=== PATIENT | male | born 1945 | race Caucasian/White ===

== ENCOUNTER 2020-04-23 10:47 | Emergency (ER) | payer MEDICARE ==
[~2020-04-23] VITALS: Ht 162.6 cm; Wt 95.3 kg
[~2020-04-23 10:47] MED LIST: APAP650 PO; FLOMAX; FLOMAX0.4 MG PO; FLONASE 0.05%50 MCG NASAL; HYDRALAZINE 2525 MG PO; HYDROCODON-ACE1 EAC7 PO; HYDROCODON-ACE1 EAC8 PO; LISINOPRIL20 MG PO; MOBIC15 MG PO; MULTIVITAMINS1 EAC7 PO; NORCO 5-325 TA1 EACH PO; NORVASC5 MG PO; PERCOCET 5-3251 EACH PO; PROTONIX40 M1 PO; TAMSULOSIN HCL0.4 M1 PO
[2020-04-23] MEDS ORDERED: CIPROFLOXACIN500 M1 PO (13:35)
[2020-04-23 13:56] LABS: URINE BILIRUBIN NEGATIVE (Negative); URINE BLOOD 3+ (Negative); URINE CLARITY CLOUDY; URINE COLOR YELLOW; URINE GLUCOSE-RANDOM NEGATIVE (Negative); URINE KETONES NEGATIVE (Negative); URINE LEUKOCYTES-REFLEX TRACE (Negative); URINE NITRITE-REFLEX NEGATIVE (Negative); URINE PROTEIN NEGATIVE (Negative); URINE UROBILINOGEN 0.2 E.U./dl (0.2-1.0)
[2020-04-23 13:58] VITALS: BP 182/86
[2020-04-23 14:16] LABS: BACTERIA-REFLEX None Seen /HPF (None Seen); CASTS None Seen /LPF (None Seen); CRYSTALS None Seen /LPF (None Seen); MUCUS 0-3 Light strn/LPF (None Seen); SQUAMOUS 0-3 Few /LPF (0-3); URINE RBC 3-10 Few /HPF (0-2); URINE WBC-REFLEX None Seen /HPF (0-5)
== END 2020-04-23 13:59 | disposition home or self-care (01) ==
LOC: M.ERS 10:47
PROVIDERS: Family Medicine
DX: R33.9 Retention of urine, unspecified (principal); N40.0 Benign prostatic hyperplasia without lower urinary tract symptoms

== ENCOUNTER 2020-04-29 07:41 | Emergency (ER) | payer MEDICARE ==
[~2020-04-29] VITALS: Ht 162.6 cm; Wt 95.3 kg
[~2020-04-29 07:41] MED LIST changes: +CIPROFLOXACIN500 M1 PO
[2020-04-29 08:15] LABS: URINE BILIRUBIN NEGATIVE (Negative); URINE BLOOD 3+ (Negative); URINE CLARITY CLEAR; URINE COLOR YELLOW; URINE GLUCOSE-RANDOM NEGATIVE (Negative); URINE KETONES NEGATIVE (Negative); URINE LEUKOCYTES-REFLEX NEGATIVE (Negative); URINE NITRITE-REFLEX NEGATIVE (Negative); URINE PROTEIN NEGATIVE (Negative); URINE SPECIFIC GRAVITY 1.025 (1.005-1.030); URINE UROBILINOGEN 0.2 E.U./dl (0.2-1.0)
[2020-04-29 08:20] LABS: SQUAMOUS NONE SEEN /LPF (0-3); URINE RBC >20 Many /HPF (0-2); URINE WBC-REFLEX 0-5 Rare /HPF (0-5)
[2020-04-29 08:21] LABS: BACTERIA-REFLEX None Seen /HPF (None Seen); CASTS None Seen /LPF (None Seen); CRYSTALS None Seen /LPF (None Seen); MUCUS >6 Heavy strn/LPF (None Seen)
[2020-04-29 08:27] LABS: CALCIUM 7.8 mg/dL (8.5-10.1); CREATININE 0.9 mg/dL (0.6-1.3); POTASSIUM 3.6 mmol/L (3.5-5.1)
[2020-04-29 08:41] VITALS: BP 119/68
== END 2020-04-29 09:09 | disposition home or self-care (01) ==
LOC: M.ERS 07:41
PROVIDERS: Emergency Medicine Emergency Medical Services
DX: R33.9 Retention of urine, unspecified (principal); Z98.890 Other specified postprocedural states; Z79.2 Long term (current) use of antibiotics; Z79.899 Other long term (current) drug therapy

== ENCOUNTER 2020-05-19 01:33 | Emergency (ER) | payer MEDICARE ==
[~2020-05-19] VITALS: Ht 167.6 cm; Wt 81.7 kg
[2020-05-19 02:07] LABS: URINE BILIRUBIN NEGATIVE (Negative); URINE BLOOD 2+ (Negative); URINE CLARITY CLEAR; URINE COLOR YELLOW; URINE GLUCOSE-RANDOM NEGATIVE (Negative); URINE KETONES NEGATIVE (Negative); URINE LEUKOCYTES-REFLEX 1+ (Negative); URINE NITRITE-REFLEX NEGATIVE (Negative); URINE PROTEIN NEGATIVE (Negative); URINE UROBILINOGEN 0.2 E.U./dl (0.2-1.0)
[2020-05-19 02:12] LABS: SQUAMOUS 0-3 Few /LPF (0-3); URINE WBC-REFLEX 6-15 Few /HPF (0-5)
[2020-05-19 02:13] LABS: CASTS None Seen /LPF (None Seen); CRYSTALS None Seen /LPF (None Seen); MUCUS 0-3 Light strn/LPF (None Seen)
[2020-05-19] MEDS ORDERED: NEBULIZER MISCELL (02:33)
[2020-05-19] MEDS ORDERED: IPRAT-ALBUT 0.5-3 ML INH (02:33)
[2020-05-19 02:55] VITALS: BP 159/82
== END 2020-05-19 02:57 | disposition home or self-care (01) ==
LOC: M.ERS 01:33
PROVIDERS: Personal Emergency Response Attendant
DX: T82.898A Other specified complication of vascular prosthetic devices, implants and grafts, initial encounter (principal); N40.0 Benign prostatic hyperplasia without lower urinary tract symptoms; Y84.8 Other medical procedures as the cause of abnormal reaction of the patient, or of later complication, without mention of misadventure at the time of the procedure; Y92.89 Other specified places as the place of occurrence of the external cause

== ENCOUNTER 2020-05-22 12:34 | Emergency (ER) | payer MEDICARE ==
[~2020-05-22] VITALS: Ht 165.1 cm; Wt 81.7 kg
[~2020-05-22 12:34] MED LIST changes: +IPRAT-ALBUT 0.5-3 ML INH; +NEBULIZER MISCELL
[2020-05-22] MEDS ORDERED: BACTRIM DS TAB1 EACH PO (13:05)
[2020-05-22 13:45] LABS: ABSOLUTE BASOPHILS 0.1 thou/uL (0.0-0.2); ABSOLUTE EOSINOPHILS 0.1 thou/uL (0.0-0.7); ABSOLUTE LYMPHOCYTES 0.9 thou/uL (0.8-5.3); ABSOLUTE MONOCYTES 0.7 thou/uL (0.0-1.2); ABSOLUTE NEUTROPHILS 5.9 thou/uL (1.6-8.1); BASOPHILS 0.8 %; EOSINOPHILS 1.4 %; HEMOGLOBIN 15.7 gm/dL (14.0-18.0); MCH 30.5 pg (26.0-34.0); MCHC 33.5 g/dL (28.0-37.0); MCV 91.2 fL (80.0-100.0); MONOCYTES 8.8 %; NUCLEATED RBCS 0 /100WBC; PLATELET COUNT* 211 thou/uL (150-400); RBC 5.15 mil/uL (4.50-6.00); RDW-CV 12.9 % (10.5-14.5); WBC 7.7 thou/uL (4.0-11.0)
[2020-05-22 13:53] LABS: CALCIUM 8.1 mg/dL (8.5-10.1); CREATININE 0.8 mg/dL (0.6-1.3); POTASSIUM 3.9 mmol/L (3.5-5.1)
[2020-05-22 13:56] LABS: APTT 26.4 Seconds (25.0-31.3); PROTIME 10.7 Seconds (9.20-11.50)
[2020-05-22 14:02] LABS: ALBUMIN 3.3 g/dL (3.4-5.0); TOTAL BILIRUBIN 0.5 mg/dL (<0.1-1.0)
[2020-05-22] MEDS ORDERED: BACTRIM DS TAB1 EAC1 PO (14:28)
[2020-05-22 16:43] VITALS: BP 148/91
== END 2020-05-22 16:45 | disposition short-term general hospital (02) ==
LOC: M.ERS 12:34
PROVIDERS: Nurse Practitioner Family
DX: R31.0 Gross hematuria (principal); R33.9 Retention of urine, unspecified; L03.90 Cellulitis, unspecified

== ENCOUNTER 2020-07-16 06:39 | Emergency (ER) | payer MEDICARE ==
[~2020-07-16] VITALS: Ht 162.6 cm; Wt 96.2 kg
[~2020-07-16 06:39] MED LIST changes: +BACTRIM DS TAB1 EAC1 PO; +BACTRIM DS TAB1 EACH PO
[2020-07-16] MEDS ORDERED: PROSCAR 5MG TABL5 M1 PO (06:54)
[2020-07-16 07:46] LABS: CALCIUM 8.7 mg/dL (8.5-10.1); CREATININE 0.8 mg/dL (0.6-1.3); POTASSIUM 3.8 mmol/L (3.5-5.1)
[2020-07-16 08:08] LABS: URINE BILIRUBIN NEGATIVE (Negative); URINE BLOOD 3+ (Negative); URINE CLARITY SL CLOUDY; URINE COLOR YELLOW; URINE GLUCOSE-RANDOM NEGATIVE (Negative); URINE KETONES NEGATIVE (Negative); URINE LEUKOCYTES-REFLEX 1+ (Negative); URINE NITRITE-REFLEX NEGATIVE (Negative); URINE PROTEIN 1+ (Negative)
[2020-07-16] MEDS ORDERED: KEFLEX500 M1 PO (08:13)
[2020-07-16 08:20] LABS: BACTERIA-REFLEX >30 Many /HPF (None Seen); SQUAMOUS NONE SEEN /LPF (0-3); URINE RBC >20 Many /HPF (0-2); URINE WBC-REFLEX 6-15 Few /HPF (0-5)
[2020-07-16 08:22] LABS: CASTS None Seen /LPF (None Seen); CRYSTALS None Seen /LPF (None Seen); MUCUS 0-3 Light strn/LPF (None Seen)
[2020-07-16 08:26] VITALS: BP 144/90
== END 2020-07-16 08:27 | disposition home or self-care (01) ==
LOC: M.ERS 06:39
PROVIDERS: Emergency Medicine Emergency Medical Services
DX: T83.098A Other mechanical complication of other urinary catheter, initial encounter (principal); N39.0 Urinary tract infection, site not specified; N40.0 Benign prostatic hyperplasia without lower urinary tract symptoms; Y84.8 Other medical procedures as the cause of abnormal reaction of the patient, or of later complication, without mention of misadventure at the time of the procedure; Y92.89 Other specified places as the place of occurrence of the external cause

== ENCOUNTER 2020-08-10 01:29 | Emergency (ER) | payer MEDICARE ==
[~2020-08-10] VITALS: Ht 162.6 cm; Wt 96.2 kg
[~2020-08-10 01:29] MED LIST changes: +KEFLEX500 M1 PO; +PROSCAR 5MG TABL5 M1 PO
[2020-08-10 01:59] LABS: URINE BILIRUBIN NEGATIVE (Negative); URINE BLOOD 1+ (Negative); URINE COLOR YELLOW; URINE GLUCOSE-RANDOM NEGATIVE (Negative); URINE KETONES NEGATIVE (Negative); URINE NITRITE-REFLEX NEGATIVE (Negative); URINE PROTEIN NEGATIVE (Negative); URINE UROBILINOGEN 0.2 E.U./dl (0.2-1.0)
[2020-08-10 02:01] LABS: URINE CLARITY SL CLOUDY; URINE LEUKOCYTES-REFLEX 2+ (Negative)
[2020-08-10 02:07] LABS: BACTERIA-REFLEX >30 Many /HPF (None Seen); CASTS None Seen /LPF (None Seen); CRYSTALS None Seen /LPF (None Seen); MUCUS 4-6 Moderate strn/LPF (None Seen); SQUAMOUS 0-3 Few /LPF (0-3); URINE WBC-REFLEX >25 Many /HPF (0-5); WBC CLUMPS Few (None Seen)
[2020-08-10] MEDS ORDERED: MACROBID 100 M100 M1 PO (02:31)
[2020-08-10 02:45] VITALS: BP 100/55
== END 2020-08-10 02:45 | disposition home or self-care (01) ==
LOC: M.ERS 01:29
PROVIDERS: Emergency Medicine
DX: N39.0 Urinary tract infection, site not specified (principal); T83.098A Other mechanical complication of other urinary catheter, initial encounter; Z98.890 Other specified postprocedural states; Z79.2 Long term (current) use of antibiotics; Y84.8 Other medical procedures as the cause of abnormal reaction of the patient, or of later complication, without mention of misadventure at the time of the procedure; Y92.89 Other specified places as the place of occurrence of the external cause

== ENCOUNTER 2020-08-30 20:19 | Emergency (ER) | payer MEDICARE ==
[~2020-08-30] VITALS: Ht 162.6 cm; Wt 96.2 kg
[~2020-08-30 20:19] MED LIST changes: +MACROBID 100 M100 M1 PO
[2020-08-30 21:17] LABS: URINE BILIRUBIN NEGATIVE (Negative); URINE BLOOD 1+ (Negative); URINE CLARITY CLEAR; URINE COLOR YELLOW; URINE GLUCOSE-RANDOM NEGATIVE (Negative); URINE KETONES NEGATIVE (Negative); URINE LEUKOCYTES-REFLEX 1+ (Negative); URINE NITRITE-REFLEX NEGATIVE (Negative); URINE PROTEIN NEGATIVE (Negative); URINE SPECIFIC GRAVITY 1.025 (1.005-1.030); URINE UROBILINOGEN 0.2 E.U./dl (0.2-1.0)
[2020-08-30 21:29] LABS: BACTERIA-REFLEX >30 Many /HPF (None Seen); CASTS None Seen /LPF (None Seen); CRYSTALS None Seen /LPF (None Seen); MUCUS None Seen strn/LPF (None Seen); SQUAMOUS NONE SEEN /LPF (0-3); URINE RBC 0-2 Rare /HPF (0-2); URINE WBC-REFLEX 6-15 Few /HPF (0-5)
[2020-08-30] MEDS ORDERED: CIPRO500 M1 PO (21:32)
[2020-08-30] MEDS ORDERED: KEFLEX500 M1 PO (21:38)
[2020-08-30 21:49] VITALS: BP 119/63
== END 2020-08-30 21:50 | disposition home or self-care (01) ==
LOC: M.ERS 20:19
PROVIDERS: Nurse Practitioner Family
DX: T83.518A Infection and inflammatory reaction due to other urinary catheter, initial encounter (principal); R33.9 Retention of urine, unspecified; N39.0 Urinary tract infection, site not specified; Z98.890 Other specified postprocedural states; Z79.899 Other long term (current) drug therapy

== ENCOUNTER 2020-11-09 02:59 | Emergency (ER) | payer MEDICARE ==
[~2020-11-09] VITALS: Ht 165.1 cm; Wt 96.2 kg
[~2020-11-09 02:59] MED LIST changes: +CIPRO500 M1 PO
[2020-11-09 03:25] LABS: URINE BILIRUBIN NEGATIVE (Negative); URINE BLOOD 1+ (Negative); URINE CLARITY CLEAR; URINE COLOR YELLOW; URINE GLUCOSE-RANDOM NEGATIVE (Negative); URINE KETONES NEGATIVE (Negative); URINE LEUKOCYTES-REFLEX NEGATIVE (Negative); URINE NITRITE-REFLEX NEGATIVE (Negative); URINE PROTEIN NEGATIVE (Negative); URINE SPECIFIC GRAVITY 1.015 (1.005-1.030); URINE UROBILINOGEN 0.2 E.U./dl (0.2-1.0)
[2020-11-09 03:38] LABS: SQUAMOUS 0-3 Few /LPF (0-3)
[2020-11-09 03:39] LABS: BACTERIA-REFLEX 1-9 Few /HPF (None Seen); CASTS None Seen /LPF (None Seen); CRYSTALS None Seen /LPF (None Seen); MUCUS 0-3 Light strn/LPF (None Seen); URINE WBC-REFLEX 0-5 Rare /HPF (0-5)
[2020-11-09] MEDS ORDERED: MACROBID 100 M100 MG PO (03:40)
[2020-11-09 03:57] VITALS: BP 138/86
== END 2020-11-09 03:57 | disposition home or self-care (01) ==
LOC: M.ERS 02:59
PROVIDERS: Personal Emergency Response Attendant
DX: R33.9 Retention of urine, unspecified (principal); N40.0 Benign prostatic hyperplasia without lower urinary tract symptoms

== ENCOUNTER 2021-02-09 03:18 | Emergency (ER) | payer MEDICARE ==
[~2021-02-09] VITALS: Ht 162.6 cm; Wt 96.2 kg
[~2021-02-09 03:18] MED LIST changes: +MACROBID 100 M100 MG PO
[2021-02-09 04:41] LABS: HEMATOCRIT 46.3 % (42.0-52.0); HEMOGLOBIN 15.6 gm/dL (14.0-18.0); MCH 30.5 pg (26.0-34.0); MCHC 33.6 g/dL (28.0-37.0); MCV 90.5 fL (80.0-100.0); MPV 7.9 fl. (7.2-11.1); NUCLEATED RBCS 0 /100WBC; PLATELET COUNT* 197 thou/uL (150-400); RBC 5.11 mil/uL (4.50-6.00); WBC 6.5 thou/uL (4.0-11.0)
[2021-02-09 04:57] LABS: CALCIUM 8.7 mg/dL (8.5-10.1); CREATININE 0.8 mg/dL (0.6-1.3); POTASSIUM 4.2 mmol/L (3.5-5.1)
[2021-02-09 05:05] LABS: URINE BILIRUBIN NEGATIVE (Negative); URINE BLOOD 3+ (Negative); URINE COLOR YELLOW; URINE GLUCOSE-RANDOM NEGATIVE (Negative); URINE KETONES NEGATIVE (Negative); URINE LEUKOCYTES-REFLEX TRACE (Negative); URINE NITRITE-REFLEX NEGATIVE (Negative); URINE PROTEIN NEGATIVE (Negative); URINE SPECIFIC GRAVITY 1.015 (1.005-1.030); URINE UROBILINOGEN 0.2 E.U./dl (0.2-1.0)
[2021-02-09 05:08] LABS: URINE CLARITY SL CLOUDY
[2021-02-09 05:17] LABS: SQUAMOUS 0-3 Few /LPF (0-3)
[2021-02-09 05:18] LABS: CASTS None Seen /LPF (None Seen); CRYSTALS None Seen /LPF (None Seen); MUCUS 0-3 Light strn/LPF (None Seen); URINE RBC >20 Many /HPF (0-2); URINE WBC-REFLEX 0-5 Rare /HPF (0-5)
[2021-02-09 05:47] VITALS: BP 148/67
[2021-02-09 06:49] LABS: ABSOLUTE EOSINOPHILS 0.2 thou/uL (0.0-0.7); ABSOLUTE LYMPHOCYTES 0.7 thou/uL (0.8-5.3); ABSOLUTE MONOCYTES 0.5 thou/uL (0.0-1.2); ABSOLUTE NEUTROPHILS 5.1 thou/uL (1.6-8.1); EOSINOPHILS 2.6 %; LYMPHOCYTES 10.5 %; MONOCYTES 7.8 %; POLYS 78.6 %
[2021-02-09 06:50] LABS: BASOPHILS 0.5 %
== END 2021-02-09 05:47 | disposition home or self-care (01) ==
LOC: M.ERS 03:18
PROVIDERS: Emergency Medicine
DX: T83.028A Displacement of other urinary catheter, initial encounter (principal); N40.0 Benign prostatic hyperplasia without lower urinary tract symptoms; Z98.890 Other specified postprocedural states; Z79.51 Long term (current) use of inhaled steroids; Z79.899 Other long term (current) drug therapy; Y84.8 Other medical procedures as the cause of abnormal reaction of the patient, or of later complication, without mention of misadventure at the time of the procedure; Y92.89 Other specified places as the place of occurrence of the external cause

== ENCOUNTER 2021-03-11 16:39 | Emergency (ER) | payer MEDICARE ==
[~2021-03-11] VITALS: Ht 162.6 cm; Wt 96.2 kg
[2021-03-11 17:49] VITALS: BP 140/79
== END 2021-03-11 17:49 | disposition home or self-care (01) ==
LOC: M.ERS 16:39
DX: T83.021A Displacement of indwelling urethral catheter, initial encounter (principal); Z79.899 Other long term (current) drug therapy; Y84.8 Other medical procedures as the cause of abnormal reaction of the patient, or of later complication, without mention of misadventure at the time of the procedure; Y92.89 Other specified places as the place of occurrence of the external cause

== ENCOUNTER 2021-03-26 19:46 | Emergency (ER) | payer MEDICARE ==
[~2021-03-26] VITALS: Ht 162.6 cm; Wt 96.2 kg
[2021-03-26 21:31] LABS: URINE BILIRUBIN NEGATIVE (Negative); URINE BLOOD 3+ (Negative); URINE CLARITY CLEAR; URINE COLOR YELLOW; URINE GLUCOSE-RANDOM NEGATIVE (Negative); URINE KETONES NEGATIVE (Negative); URINE PROTEIN NEGATIVE (Negative); URINE UROBILINOGEN 0.2 E.U./dl (0.2-1.0)
[2021-03-26 21:33] LABS: URINE LEUKOCYTES-REFLEX 3+ (Negative); URINE NITRITE-REFLEX POSITIVE (Negative)
[2021-03-26 21:46] LABS: SQUAMOUS NONE SEEN /LPF (0-3)
[2021-03-26 21:47] LABS: CASTS None Seen /LPF (None Seen); CRYSTALS None Seen /LPF (None Seen); MUCUS None Seen strn/LPF (None Seen); URINE WBC-REFLEX >25 Many /HPF (0-5); WBC CLUMPS Few (None Seen)
[2021-03-26 21:48] LABS: BACTERIA-REFLEX 1-9 Few /HPF (None Seen)
[2021-03-26 22:23] LABS: URINE BILIRUBIN NEGATIVE (Negative); URINE BLOOD 3+ (Negative); URINE CLARITY SL CLOUDY; URINE COLOR YELLOW; URINE GLUCOSE-RANDOM NEGATIVE (Negative); URINE KETONES NEGATIVE (Negative); URINE NITRITE-REFLEX NEGATIVE (Negative); URINE PROTEIN TRACE (Negative); URINE UROBILINOGEN 0.2 E.U./dl (0.2-1.0)
[2021-03-26 22:25] LABS: URINE LEUKOCYTES-REFLEX 3+ (Negative)
[2021-03-26 22:29] LABS: BACTERIA-REFLEX 1-9 Few /HPF (None Seen); CRYSTALS None Seen /LPF (None Seen); HYALINE CASTS 0-3 Few /LPF (None Seen); MUCUS None Seen strn/LPF (None Seen); SQUAMOUS NONE SEEN /LPF (0-3); URINE WBC-REFLEX >25 Many /HPF (0-5)
[2021-03-26 22:30] LABS: URINE RBC >20 Many /HPF (0-2)
[2021-03-26] MEDS ORDERED: DOXYCYCLINE 10100 MG PO (22:36)
[2021-03-26 22:48] VITALS: BP 107/60
== END 2021-03-26 22:49 | disposition home or self-care (01) ==
LOC: M.ERS 19:46
PROVIDERS: Emergency Medicine
DX: T83.9XXA Unspecified complication of genitourinary prosthetic device, implant and graft, initial encounter (principal); N39.0 Urinary tract infection, site not specified; Z79.899 Other long term (current) drug therapy; Y84.8 Other medical procedures as the cause of abnormal reaction of the patient, or of later complication, without mention of misadventure at the time of the procedure; Y92.89 Other specified places as the place of occurrence of the external cause